=== PATIENT | male | born 1945 | race Caucasian/White ===

== ENCOUNTER 2018-02-06 22:29 | Inpatient (IN) | payer MEDICARE, MEDICAID ==
[~2018-02-06] VITALS: Ht 165.1 cm; Wt 83.9 kg
[~2018-02-06 22:29] MED LIST: AMIODARONE PO; CARV12.545 PO; ESOM40CA PO; FERR-63 PO; FINA5TAB11 PO; FOLI-43 PO; FURO40TA5 PO; GLV55 PO; IBUP-516 PO; LUBI24CA5 PO; PLAVIX PO; POTA10TA15 PO; SILO8CAP PO; SIMV40TA5 PO; VALS160T2 PO; ZET10 PO
[2018-02-06] MEDS ORDERED: ONDANSETRON HCL 4MG/2ML INJ IV STA (22:54)
[2018-02-06] MEDS ORDERED: MORPHINE SULFATE 4 MG/ML CPJ (NOT FOR IM USE) IV STA (22:54)
[2018-02-07 00:11] LABS: CHLORIDE 104 mEq/L (98-107)
[2018-02-07 00:17] LABS: HEMATOCRIT. 32.7 % (42.0-52.0); HEMOGLOBIN. 11.3 g/dL (14.0-18.0); MEAN CORPUSCULAR HEMOGLOBIN 32.2 pg (28.0-32.0); MEAN CORPUSCULAR VOLUME 93.4 fL (80.0-94.0); MEAN PLATELET VOLUME 7.7 fl (7.4-10.4); PLATELET 162 x1000/uL (130-400); RED CELL DISTRIBUTION WIDTH 14.1 % (11.6-14.6)
[2018-02-07 00:19] LABS: CLARITY URINE CLEAR (CLEAR); COLOR URINE YELLOW (YELLOW); KETONES URINE NEGATIVE (NEGATIVE); LEUKOCYTE ESTERASE URINE NEGATIVE (NEGATIVE); NITRITE URINE NEGATIVE (NEGATIVE); OCCULT BLOOD URINE NEGATIVE (NEGATIVE); PH URINE 6.5 (4.5-8.0); PROTEIN URINE 2+ (NEGATIVE); SPECIFIC GRAVITY URINE 1.006 (1.005-1.030); UROBILINOGEN URINE 0.2 E.U./dL (0.2-1.0)
[2018-02-07 00:19] LABS: ETHANOL BLOOD < 10 mg/dL
[2018-02-07 00:21] LABS: PARTIAL THROMBOPLASTIN TIME 27.7 sec (23.4-31.0); PROTHROMBIN TIME 10.5 sec (9.1-11.1)
[2018-02-07 00:33] LABS: *AMPHETAMINES SCREEN URINE NEGATIVE (NEGATIVE); *BARBITURATES SCREEN URINE NEGATIVE (NEGATIVE); *BENZODIAZEPINES SCREEN URINE NEGATIVE (NEGATIVE); *COCAINE SCREEN URINE NEGATIVE (NEGATIVE); METHADONE URINE SCREEN NEGATIVE (NEGATIVE)
[2018-02-07 00:35] LABS: CANNABINOID URINE SCREEN NEGATIVE (NEGATIVE); OPIATES URINE SCREEN NEGATIVE (NEGATIVE); PHENCYCLIDINE URINE SCREEN NEGATIVE (NEGATIVE)
[2018-02-07 02:17] LABS: PLATELET ESTIMATE NORMAL
[2018-02-07 09:00] VITALS: BP 138/70
[2018-02-07] MEDS ORDERED: LOSA100T14 MT (10:13)
[2018-02-07] MEDS ORDERED: ALFU10TA9 MT (10:13)
[2018-02-07] MEDS ORDERED: ATOR20TA65 MT (10:13)
[2018-02-07] MEDS ORDERED: CLOT15CR TP (10:13)
[2018-02-07] MEDS ORDERED: ALLO100T MT (10:13)
[2018-02-07] MEDS ORDERED: CALC0.253 MT (10:13)
[2018-02-07] MEDS ORDERED: ASPI-1159 MT (10:13)
[2018-02-07] MEDS ORDERED: POTA10CA42 MT (10:13)
[2018-02-07] MEDS ORDERED: OMEP40CA34 MT (10:13)
[2018-02-07] MEDS ORDERED: INSU100V3 SUBCUT (10:17)
[2018-02-07] MEDS ORDERED: TRIA15CR61 TP (10:17)
[2018-02-07] MEDS ORDERED: GUAIFENESIN 200MG/10ML SUGAR FREE UDC PO PRN (10:30)
[2018-02-07] MEDS ORDERED: VANCOMYCIN 1 G PREMIX 200 ML IV SCH (10:30)
[2018-02-07] MEDS ORDERED: NON FORMULARY PATIENT HOME MED EA XX SCH (10:30)
[2018-02-07] MEDS ORDERED: ACETAMINOPHEN 325MG TABLET PO PRN (10:30)
[2018-02-07] MEDS ORDERED: ONDANSETRON HCL 4MG/2ML INJ IV PRN (10:30)
[2018-02-07] MEDS ORDERED: LOSARTAN POTASSIUM 50 MG TABLET PO SCH (10:30)
[2018-02-07] MEDS ORDERED: DEXTROSE 50% WATER 50ML SYRINGE IV PRN ×2 (10:45)
[2018-02-07] MEDS ORDERED: ALLOPURINOL 100 MG TABLET PO SCH (11:00)
[2018-02-07] MEDS ORDERED: ASPIRIN 81MG EC TABLET PO ONE (11:00)
[2018-02-07] MEDS: IPRATROPIUM/ALBUTEROL 0.5-3(2.5)MG/3ML NEB HHN SCH ×3 (11:54→21:03)
[2018-02-07 12:00] VITALS: BP 125/68
[2018-02-07] MEDS: BLOOD SUGAR DIAGNOSTIC STRIP TEST SCH ×3 (12:40→21:04)
[2018-02-07] MEDS: SODIUM CHL 0.45% + KCL 20MEQ/L 1,000 ML IV SCH (12:46)
[2018-02-07] MEDS: CEFEPIME 1,000 MG in DEXTROSE 5% WATER 50 ML IV SCH (12:46)
[2018-02-07] MEDS: ENOXAPARIN 40MG/0.4ML SYR SUBCUT SCH (12:47)
[2018-02-07] MEDS: INSULIN LISPRO 100 UNITS/ML SUBCUT SCH ×3 (12:48→21:06)
[2018-02-07] MEDS: FINASTERIDE 5MG TABLET PO SCH (12:48)
[2018-02-07] MEDS: ASPIRIN 81MG EC TABLET PO SCH (12:48)
[2018-02-07] MEDS: TAMSULOSIN HCL 0.4MG SR CAPSULE PO SCH (13:00)
[2018-02-07 16:00] VITALS: BP 98/53
[2018-02-07 16:45] LABS: CREATINE KINASE MB FRACTION 1.9 ng/mL (0.5-3.6)
[2018-02-07 17:55] LABS: CLARITY URINE CLEAR (CLEAR); COLOR URINE YELLOW (YELLOW); KETONES URINE NEGATIVE (NEGATIVE); LEUKOCYTE ESTERASE URINE NEGATIVE (NEGATIVE); NITRITE URINE NEGATIVE (NEGATIVE); OCCULT BLOOD URINE NEGATIVE (NEGATIVE); PH URINE 5.5 (4.5-8.0); PROTEIN URINE TRACE (NEGATIVE); SPECIFIC GRAVITY URINE 1.007 (1.005-1.030); UROBILINOGEN URINE 0.2 E.U./dL (0.2-1.0)
[2018-02-07 20:00] VITALS: BP 108/70
[2018-02-07] MEDS ORDERED: ATORVASTATIN CALCIUM 20MG TABLET PO SCH (21:00)
[2018-02-07] MEDS: ATORVASTATIN CALCIUM 20MG TABLET PO SCH (21:04)
[2018-02-07 23:21] LABS: CREATINE KINASE MB FRACTION 1.7 ng/mL (0.5-3.6)
[2018-02-08] VITALS: BP 151/73
[2018-02-08] MEDS: IPRATROPIUM/ALBUTEROL 0.5-3(2.5)MG/3ML NEB HHN SCH ×5 (00:13→21:18)
[2018-02-08] MEDS: CEFEPIME 1,000 MG in DEXTROSE 5% WATER 50 ML IV SCH ×2 (01:57→12:56)
[2018-02-08 04:00] VITALS: BP 131/70
[2018-02-08] MEDS: BLOOD SUGAR DIAGNOSTIC STRIP TEST SCH ×4 (06:11→20:45)
[2018-02-08 07:01] LABS: HEMATOCRIT. 30.1 % (42.0-52.0); HEMOGLOBIN. 10.5 g/dL (14.0-18.0); MEAN CORPUSCULAR HEMOGLOBIN 32.8 pg (28.0-32.0); MEAN CORPUSCULAR VOLUME 93.8 fL (80.0-94.0); MEAN PLATELET VOLUME 8.1 fl (7.4-10.4); PLATELET 164 x1000/uL (130-400); RED BLOOD CELL COUNT 3.21 mill/uL (4.7-6.1); RED CELL DISTRIBUTION WIDTH 13.9 % (11.6-14.6)
[2018-02-08 07:08] LABS: CHLORIDE 106 mEq/L (98-107)
[2018-02-08 07:34] LABS: PHOSPHORUS 3.8 mg/dL (2.5-4.9)
[2018-02-08] MEDS: INSULIN LISPRO 100 UNITS/ML SUBCUT SCH ×4 (08:10→20:46)
[2018-02-08] MEDS: TAMSULOSIN HCL 0.4MG SR CAPSULE PO SCH (08:52)
[2018-02-08] MEDS: FOLIC ACID/VITAMIN B COMP W-C TABLET PO SCH (08:53)
[2018-02-08] MEDS: LOSARTAN POTASSIUM 50 MG TABLET PO SCH (08:53)
[2018-02-08] MEDS: OMEPRAZOLE 20MG CAPSULE EXTENDED RELEASE PO SCH (08:53)
[2018-02-08] MEDS: ASPIRIN 81MG EC TABLET PO SCH (08:53)
[2018-02-08] MEDS: SODIUM CHL 0.45% + KCL 20MEQ/L 1,000 ML IV SCH ×2 (08:54→18:09)
[2018-02-08] MEDS: ENOXAPARIN 40MG/0.4ML SYR SUBCUT SCH (08:54)
[2018-02-08] MEDS: ALLOPURINOL 100 MG TABLET PO SCH (08:59)
[2018-02-08] MEDS: FINASTERIDE 5MG TABLET PO SCH (08:59)
[2018-02-08] MEDS ORDERED: EZETIMIBE 10MG TABLET PO SCH (09:00)
[2018-02-08] MEDS ORDERED: ASPIRIN 81MG EC TABLET PO SCH (09:00)
[2018-02-08 10:50] LABS: PLATELET ESTIMATE NORMAL
[2018-02-08 12:20] VITALS: BP 125/73
[2018-02-08 16:00] VITALS: BP 100/54
[2018-02-08 20:00] VITALS: BP 125/73
[2018-02-08] MEDS: CARVEDILOL 3.125 MG TABLET PO SCH (20:44)
[2018-02-08] MEDS: ATORVASTATIN CALCIUM 20MG TABLET PO SCH (20:44)
[2018-02-09 00:20] VITALS: BP 146/86
[2018-02-09] MEDS ORDERED: CLONIDINE 0.1MG TABLET PO PRN (00:45)
[2018-02-09] MEDS: CEFEPIME 1,000 MG in DEXTROSE 5% WATER 50 ML IV SCH ×2 (00:53→13:05)
[2018-02-09] MEDS: IPRATROPIUM/ALBUTEROL 0.5-3(2.5)MG/3ML NEB HHN SCH ×4 (01:02→11:11)
[2018-02-09] MEDS ORDERED: AMLODIPINE 5MG TABLET PO NR (03:00)
[2018-02-09] MEDS: SODIUM CHL 0.45% + KCL 20MEQ/L 1,000 ML IV SCH ×2 (03:12→13:05)
[2018-02-09 04:36] VITALS: BP 131/78
[2018-02-09] MEDS: BLOOD SUGAR DIAGNOSTIC STRIP TEST SCH ×2 (06:29→12:28)
[2018-02-09 07:03] LABS: HEMATOCRIT. 29.6 % (42.0-52.0); HEMOGLOBIN. 10.3 g/dL (14.0-18.0); MEAN CORPUSCULAR HEMOGLOBIN 33.1 pg (28.0-32.0); MEAN CORPUSCULAR VOLUME 94.6 fL (80.0-94.0); MEAN PLATELET VOLUME 8.4 fl (7.4-10.4); PLATELET 155 x1000/uL (130-400); RED BLOOD CELL COUNT 3.13 mill/uL (4.7-6.1)
[2018-02-09] MEDS: INSULIN LISPRO 100 UNITS/ML SUBCUT SCH ×2 (07:42→13:04)
[2018-02-09 07:44] LABS: CHLORIDE 111 mEq/L (98-107)
[2018-02-09 08:00] VITALS: BP 124/71
[2018-02-09] MEDS: ENOXAPARIN 40MG/0.4ML SYR SUBCUT SCH (08:55)
[2018-02-09] MEDS: LOSARTAN POTASSIUM 50 MG TABLET PO SCH (08:56)
[2018-02-09] MEDS: CARVEDILOL 3.125 MG TABLET PO SCH (08:56)
[2018-02-09] MEDS: FINASTERIDE 5MG TABLET PO SCH (08:56)
[2018-02-09] MEDS: ASPIRIN 81MG EC TABLET PO SCH (08:56)
[2018-02-09] MEDS: ALLOPURINOL 100 MG TABLET PO SCH (08:56)
[2018-02-09] MEDS: FOLIC ACID/VITAMIN B COMP W-C TABLET PO SCH (08:56)
[2018-02-09] MEDS: TAMSULOSIN HCL 0.4MG SR CAPSULE PO SCH (08:57)
[2018-02-09] MEDS: OMEPRAZOLE 20MG CAPSULE EXTENDED RELEASE PO SCH (08:57)
[2018-02-09] MEDS ORDERED: AMLODIPINE 5MG TABLET PO SCH (09:00)
[2018-02-09 09:10] LABS: PLATELET ESTIMATE NORMAL
[2018-02-09 12:00] VITALS: BP 119/66
[2018-02-09 15:11] VITALS: BP 116/63
[2018-02-09 15:20] VITALS: BP 116/63
== END 2018-02-09 15:53 | disposition home or self-care (01) | DRG 690 ==
LOC: ER 22:29 → 7WST 02-07 00:58 → EDBEDREQTM 02-07 01:00 → EDBEDREQ 02-07 01:00 → EDBEDREQDT 02-07 01:00 → ENRESERV 02-07 06:56
PROVIDERS: ADMIT Internal Medicine Geriatric Medicine; ATTEND Internal Medicine Geriatric Medicine
DX: N12 Tubulo-interstitial nephritis, not specified as acute or chronic (principal); Q21.1 Atrial septal defect; K21.9 Gastro-esophageal reflux disease without esophagitis; J40 Bronchitis, not specified as acute or chronic; E86.0 Dehydration; I44.7 Left bundle-branch block, unspecified; I25.10 Atherosclerotic heart disease of native coronary artery without angina pectoris; N40.0 Benign prostatic hyperplasia without lower urinary tract symptoms; I10 Essential (primary) hypertension; E78.5 Hyperlipidemia, unspecified; E78.00 Pure hypercholesterolemia, unspecified; E11.65 Type 2 diabetes mellitus with hyperglycemia; M19.90 Unspecified osteoarthritis, unspecified site; M10.9 Gout, unspecified; D63.8 Anemia in other chronic diseases classified elsewhere; Z86.12 Personal history of poliomyelitis; Z95.5 Presence of coronary angioplasty implant and graft; I25.2 Old myocardial infarction; Z79.899 Other long term (current) drug therapy; Z79.1 Long term (current) use of non-steroidal anti-inflammatories (NSAID)
CPT/HCPCS: 36415; 70450; 71045; 74176; 80053; 80305; 81003; 82270; 82553; 82962; 83036; 83690; 83880; 84100; 84443; 84484; 84550; 85025; 85610; 85730; 87086; 93005; 93306; 93970; 94640; 96374; 96375; 99285; G0482; J0692; J1650; J1815; J2270; J2405; J3480; J7060; J7620